=== PATIENT | male | born 1990 | race Asian ===

== ENCOUNTER 2020-07-29 11:52 | Outpatient (REF) | payer SELFPAY ==
[2020-07-29 12:26] LABS: COVID-19 Test Negative (Negative)
== END 2020-07-29 11:53 | disposition home or self-care (01) ==
LOC: HO.LAB 11:52
PROVIDERS: PCP Emergency Medicine Emergency Medical Services; Visit Provider Internal Medicine
DX: Z20.828 Contact with and (suspected) exposure to other viral communicable diseases (principal)
CPT/HCPCS: 87635

== ENCOUNTER 2020-08-04 15:40 | Outpatient (REF) | payer SELFPAY ==
[2020-08-04 16:55] LABS: SARS COV2 PCR INHOUSE NEGATIVE (Negative)
== END 2020-08-04 15:41 | disposition home or self-care (01) ==
LOC: HO.LAB 15:40
PROVIDERS: Visit Provider Internal Medicine
DX: Z20.828 Contact with and (suspected) exposure to other viral communicable diseases (principal)
CPT/HCPCS: 87635

== ENCOUNTER 2020-08-07 11:28 | Outpatient (REF) | payer SELFPAY ==
[2020-08-07 11:50] LABS: COVID-19 Test Negative (Negative)
== END 2020-08-07 11:29 | disposition home or self-care (01) ==
LOC: HO.LAB 11:28
PROVIDERS: Visit Provider Internal Medicine
DX: Z20.828 Contact with and (suspected) exposure to other viral communicable diseases (principal)
CPT/HCPCS: 87635

== ENCOUNTER 2024-06-25 04:31 | Emergency (ER) | payer BC, SELFPAY ==
[2024-06-25 04:35] VITALS: BP 137/90; PULSE 77; RESP 18; TEMP 36.6; O2SAT 99; BMI 26.3
[2024-06-25] MEDS: Magnesium Hydrox/Alum Hydrox 30 ML ORAL.SUSP PO (04:57)
[2024-06-25] MEDS: ondansetron HCL 4 MG/2 ML VIAL IVPUSH (04:57)
[2024-06-25] MEDS: Famotidine/PF 20 MG/2 ML VIAL IVPUSH (04:57)
[2024-06-25] MEDS: 0.9 % Sodium Chloride 1,000 ML 999 ML IV ×2 (04:58→05:57)
[2024-06-25 04:59] LABS: Basophils Absolute Auto 0.1 X10*3/uL (0.0-0.2); Basophils Percent Auto 0.6 % (0-2); Eosinophils Absolute Auto 0.1 X10*3/uL (0.0-0.4); Eosinophils Percent Auto 0.7 % (0-4); Hemoglobin 15.9 g/dl (14.0-18.0); Imm Gran Abs Auto 0.02 X10*3/uL (0.00-0.03); Imm Gran Pct Auto 0.2 % (0.0-0.4); Lymphocytes Absolute Auto 2.1 X10*3/uL (1.2-4.9); Lymphocytes Percent Auto 25.1 % (20-40); MANUAL DIFF FLAG NO; Mean Corpuscular HGB Conc 34.6 g/dl (31.0-36.0); Mean Corpuscular Hemoglobin 27.6 pg (27.0-33.0); Mean Corpuscular Volume 79.9 fL (80.0-98.0); Mean Platelet Volume 10.7 fL (9.4-12.4); Monocytes Absolute Auto 0.4 X10*3/uL (0.1-1.2); Monocytes Percent Auto 4.1 % (2-11); Neutrophils Absolute Auto 5.9 x10*3/uL (2.0-8.3); Neutrophils Percent Auto 69.3 % (45-73); Platelet Count 235 X10*3/uL (160-400); Red Blood Count 5.76 X10*6/uL (4.60-5.80); Red Cell Distribution Width 13.6 % (11.0-16.0); White Blood Count 8.5 X10*3/uL (4.8-10.8)
[2024-06-25 05:13] LABS: Alanine Aminotransferase 59 U/L (0-40); Albumin Level 4.9 g/dL (3.5-5.0); Alkaline Phosphatase 93 U/L (39-117); Anion Gap 16 (12-20); Aspartate Amino Transferase 27 U/L (5-37); Bilirubin Direct 0.1 mg/dL (0.0-0.5); Bilirubin Total 0.5 mg/dL (0.0-1.0); Blood Urea Nitrogen 17 mg/dL (9-16); Calcium 10.2 mg/dL (8.4-10.2); Carbon Dioxide 24 mmol/L (22-29); Chloride 105 mmol/L (96-108); Creatinine Clr Calc Pharmacy 128.8; Estimated Glomerular Filt Rate > 60; Glucose Random 118 mg/dL (60-115); Lipase 31 U/L (8-78); Sodium 141 mmol/L (135-145); Total Protein 8.2 g/dL (6.5-8.0)
[2024-06-25 05:19] LABS: Troponin-I High Sensitivity < 2.7 ng/L (<3.5-35.0)
[2024-06-25] MEDS: Metoclopramide HCl 10 MG/2 ML VIAL IVPUSH (05:21)
--- NOTE | 2024-06-25 05:49 | ED.ABDPAIN ---
HPI - Abdominal Pain General Chief Complaint: Abdominal Pain Stated Complaint: nauseous/vomiting Time Seen by Provider: 06/25/24 04:48 Source: patient Mode of arrival: ambulatory Limitations: no limitations History of Present Illness ED Provider: DR. Mai HPI narrative: a 34-year-old male walk into the emergency department for evaluation of persistent vomiting since last night started at 20:00. Patient is been having frequent vomiting, tried several doses of Zofran with no relief of his symptoms, patient gets epigastric cramps every 5-10 minute followed by vomiting and burping with a smell of rotten egg, no vomiting otherwise, no abdominal pain in between the episodes, no sick contacts, no bad food, no recent use of antibiotic, no recent travel, never had intra-abdominal surgery in past, no alcohol use or drug use. 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 Related Data Previous Rx's ?Medication ?Instructions ?Recorded omeprazole 40 mg capsule,delayed 40 mg PO DAILY #30 caps 06/25/24 release Allergies Allergy/AdvReac Type Severity Reaction Status Date / Time No Known Allergies Allergy Verified 06/25/24 04:38 Review of Systems Review of Systems all other systems are reviewed and are negative Constitutional: Reports as per HPI and Reports no additional constitutional complaints Eyes: Reports as per HPI and Reports no additional eye complaints Reports system reviewed and no additional complaints, except as documented Cardiovascular: Reports as per HPI and Reports no additional cardiovascular complaints Respiratory: Reports as per HPI and Reports no additional respiratory complaints Gastrointestinal: Reports as per HPI and Reports no additional gastrointestinal complaints Genitourinary: Reports no additional female genitourinary complaints Musculoskeletal: Reports no additional musculoskeletal complaints Skin/Breast: Reports system reviewed and no additional complaints, except as docu Psychiatric: Reports no additional psychiatric complaints Endocrine: Reports no additional endocrine complaints Hematologic/Lymphatic: Reports no additional hematologic/lymphatic complaints Allergic/Immunologic: Reports no additional allergic/immunologic complaints Reports system reviewed and no additional complaints, except as documented and Reports Abnormal speech present [facility] Social History Social History Smoked in Last 30 Days: No Use of substances other than those prescribed or required for medical reasons: No Advance Directives: No Advance Directives Information Provided: No Do you have a plan to hurt others: No Plan Physical Exam ED Vital Signs: Vital Signs - 24 hr 06/25/24 04:35 Temperature 97.9 F Pulse Rate 77 Respiratory Rate 18 Blood Pressure 137/90 H Pulse Oximetry 99 Oxygen Delivery Method Room Air BMI result Body Mass Index 26.3 Vital signs have been reviewed and appear to be correct. Blood pressure elevated. Heart rate normal. Respiratory rate normal. Temperature normal. Oxygen saturation normal. Appearance: Alert. Oriented X3. No acute distress. Head: Normal external exam. Normocephalic. Atraumatic. No Sam signs noted. No raccoon eyes noted Eyes: PERRLA. EOMI. Conjunctiva and sclera normal. Eyelids normal. ENT: TM's Normal. Pharynx normal. Uvula midline. Moist mucous membranes. No trismus noted. No drooling noted. No muffled voice noted. Neck: Normal inspection. Neck supple. FROM. No adenopathy. Thyroid Normal. No meningeal signs. No neck mass noted. CVS: Normal heart rate and rhythm. Heart sound normal. No murmurs noted. Pulses normal throughout. Respiratory: No respiratory distress. Painless inspiration. Breath sounds normal. No wheezes/rales/rhonchi noted. Chest nontender. No accessory muscle usage noted or decreased air movement noted. Abdomen: Soft and nontender. Bowel sounds normal in all 4 quadrants. No distention noted. No organomegaly noted. No visible injury noted. Back: No CVA tenderness. Full range of motion noted. Skin: Skin warm and dry. Normal skin color. Normal skin turgor. No rashes/lesions/lacerations noted. Extremities: No lower extremity edema. Extremities exhibit normal range of motion. Extremities nontender. Neuro: Oriented X 3. Cranial nerve exam: II-XII are grossly intact No motor deficit. No sensory deficit. Reflexes normal. Course Reevaluation(s) Reevaluation #1: feels much better, able to tolerate p.o. intake without nausea or vomiting. Labs are unremarkable for acute pathology. Patient's symptoms is likely acute gastritis will start on Prilosec. Time: 07:00 Medical Decision Making Differential Diagnosis Differential Diagnoses: The differential diagnosis associated with the presentation includes ( Food poisoning, gastroenteritis, gastritis, electrolyte derangement, dehydration, EM, severe anemia, acute appendicitis, acute colitis.) Admission/Observation Consideration of admission/observation: Escalation of care including admission/observation considered Lab Data MDM Lab Attestation statement: I reviewed the patient's lab results. 06/25/24 04:54 06/25/24 04:54 Labs: Lab Results 06/25/24 Range/Units 04:54 WBC 8.5 (4.8-10.8) X10*3/uL RBC 5.76 (4.60-5.80) X10*6/uL Hgb 15.9 (14.0-18.0) g/dl Hct 46.0 (42.0-52.0) % MCV 79.9 L (80.0-98.0) fL MCH 27.6 (27.0-33.0) pg MCHC 34.6 (31.0-36.0) g/dl RDW 13.6 (11.0-16.0) % Plt Count 235 (160-400) X10*3/uL MPV 10.7 (9.4-12.4) fL Immature Gran % (Auto) 0.2 (0.0-0.4) % Neut % (Auto) 69.3 (45-73) % Lymph % (Auto) 25.1 (20-40) % Ashley % (Auto) 4.1 (2-11) % Eos % (Auto) 0.7 (0-4) % Baso % (Auto) 0.6 (0-2) % Lymph # (Auto) 2.1 (1.2-4.9) X10*3/uL Ashley # (Auto) 0.4 (0.1-1.2) X10*3/uL Eos # (Auto) 0.1 (0.0-0.4) X10*3/uL Baso # (Auto) 0.1 (0.0-0.2) X10*3/uL Abs Immat Gran (auto) 0.02 (0.00-0.03) X10*3/uL Absolute Neuts (auto) 5.9 (2.0-8.3) x10*3/uL Absolute Nucleated RBC 0.000 (0.0-0.012) X10*3/uL Nucleated RBC % (auto) 0.0 (0.0-0.2) /100WBC Sodium 141 (135-145) mmol/L Potassium 4.0 (3.3-5.1) mmol/L Chloride 105 (96-108) mmol/L Carbon Dioxide 24 (22-29) mmol/L Anion Gap 16 (12-20) BUN 17 H (9-16) mg/dL Creatinine 0.93 (0.5-1.4) mg/dL Estim Creat Clear Calc 128.8 Estimated GFR > 60 Random Glucose 118 H (60-115) mg/dL Calcium 10.2 (8.4-10.2) mg/dL Total Bilirubin 0.5 (0.0-1.0) mg/dL Direct Bilirubin 0.1 (0.0-0.5) mg/dL AST 27 (5-37) U/L ALT 59 H (0-40) U/L Alkaline Phosphatase 93 (39-117) U/L Troponin I High Sens < 2.7 (<3.5-35.0) ng/L Total Protein 8.2 H (6.5-8.0) g/dL Albumin 4.9 (3.5-5.0) g/dL Lipase 31 (8-78) U/L Medications Administered Discontinued Medications Generic Name Dose Route Start Last Admin Trade Name Freq PRN Reason Stop Dose Admin Al Hydroxide/Mg Hydroxide 30 ml 06/25/24 04:50 06/25/24 04:57 Magnesium Hydrox/Alum Hydrox 30 Ml Oral.Susp PO 06/25/24 04:51 30 ml ONCE ONE Administration Famotidine 20 mg 06/25/24 04:49 06/25/24 04:57 Famotidine/Pf 20 Mg/2 Ml Vial IVPUSH 06/25/24 04:50 20 mg ONCE ONE Administration Sodium Chloride 1,000 mls @ 999 mls/hr 06/25/24 04:49 06/25/24 04:58 Ns IV 06/25/24 05:49 999 mls/hr .Q1H1M ONE Administration Metoclopramide HCl 10 mg 06/25/24 05:14 06/25/24 05:21 Metoclopramide Hcl 10 Mg/2 Ml Vial IVPUSH 06/25/24 05:15 10 mg ONCE ONE Administration Ondansetron HCl 4 mg 06/25/24 04:49 06/25/24 04:57 Ondansetron Hcl 4 Mg/2 Ml Vial IVPUSH 09/11/24 04:50 4 mg ONCE ONE Administration Discharge Plan Discharge Clinical Impression: Gastritis, Vomiting Patient Disposition: Home, Self-Care Instructions: Gastritis (ED) Prescriptions: New omeprazole 40 mg capsule,delayed release(DR/EC) 40 mg PO DAILY Qty: 30 0RF Referrals: Camryn Lovett MD [Physician] - Viral Kapadia MD [Primary Care Provider] - Print Language: French
[2024-06-25 06:45] VITALS: BP 137/90; PULSE 77; RESP 18; TEMP 36.6; O2SAT 99
== END 2024-06-25 06:46 | disposition home or self-care (01) ==
PROVIDERS: Emergency Provider Emergency Medicine; PCP Internal Medicine
DX: K29.70 Gastritis, unspecified, without bleeding (principal); R11.10 Vomiting, unspecified; R10.9 Unspecified abdominal pain
CPT/HCPCS: 36415; 80048; 80076; 83690; 84484; 85025; 96361; 96374; 96375; 99284; J2405; J2765

== ENCOUNTER 2024-06-25 20:08 | Emergency (ER) | payer BC, SELFPAY ==
--- NOTE | ~2024-06-25 | CT_ITS ---
EXAMINATION: CT ABDOMEN AND PELVIS WITH CONTRAST CLINICAL INFORMATION: Abdominal pain COMPARISON: None available. TECHNIQUE: Multidetector volumetric images were obtained from the superior aspect of the liver through the pubic symphysis following administration 85 mL of Omnipaque 350 intravenous contrast. Sagittal and coronal reformatted images were obtained on the technologist's workstation. Oral contrast: No This CT examination was performed using dose optimization techniques as appropriate, variously including the following: *Automated exposure control *Adjustment of mA and/or kV according to patient size (this includes techniques or standardized protocols for targeted exams where dose is matched to indication/reason for exam; i.e. extremities or head) *Use of iterative reconstruction technique DLP: 528 mGy-cm FINDINGS: LUNG BASES: The visualized lung bases are unremarkable. LIVER, GALLBLADDER, AND BILIARY TREE: The liver is normal in size, shape, and attenuation. No focal hepatic lesion or biliary ductal dilatation is present. The gallbladder is unremarkable with no evidence of radiopaque gallstones, gallbladder wall thickening, or obvious pericholecystic inflammatory changes. PANCREAS: Unremarkable. SPLEEN: Unremarkable. ADRENAL GLANDS: Unremarkable. KIDNEYS AND URETERS: The kidneys are normal in size, shape, and attenuation. No hydronephrosis, hydroureter, or calculi seen. No perinephric stranding. BLADDER: Unremarkable. GASTROINTESTINAL TRACT: The small and large bowel are unremarkable. The appendix is unremarkable. ABDOMINAL WALL: No significant hernia is appreciated. LYMPH NODES: Normal. VASCULAR: Unremarkable. PELVIC VISCERA: Unremarkable. OSSEOUS STRUCTURES: Unremarkable. CT/CT abdomen pelvis w IV con IMPRESSION: Normal CT of abdomen and pelvis. Fleischner guidelines were followed. Electronically signed by: Den Ortega MD 06/25/2024 10:15 PM EDT
[2024-06-25 20:10] VITALS: BP 145/80; PULSE 94; RESP 18; TEMP 36.8; O2SAT 99; BMI 26.3
--- NOTE | 2024-06-25 20:10 | ED_ITS ---
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 was seen here lastnight lab workup showed normal WBC count was discharged after IV fluid does have slight upper abdominal and mid abdomen discomfort no fever no chills no fever patient went home continued to vomit took Zofran and Reglan without much relief does not remember any bad food or recent travel Related Data Previous Rx's ?Medication ?Instructions ?Recorded omeprazole 40 mg capsule,delayed 40 mg PO DAILY #30 caps 06/25/24 release ondansetron 4 mg disintegrating 4 mg PO Q6-8H PRN nausea and 06/25/24 tablet vomiting #20 tabs Allergies Allergy/AdvReac Type Severity Reaction Status Date / Time No Known Allergies Allergy Verified 06/25/24 20:15 Review of Systems Review of Systems Yes all other systems are reviewed and are negative [facility] Social History Social History Advance Directives: No Advance Directives Information Provided: No Physical Exam ED Vital Signs: Vital Signs - 24 hr 06/25/24 20:10 06/25/24 20:39 06/25/24 23:15 Temperature 98.2 F 98.4 F 97.4 F Pulse Rate 94 97 91 Respiratory Rate 18 16 16 Blood Pressure 145/80 H 131/83 134/90 H Pulse Oximetry 99 97 98 Oxygen Delivery Method Room Air Room Air Room Air 06/25/24 23:17 Temperature 97.4 F Pulse Rate 91 Respiratory Rate 16 Blood Pressure 134/90 H Pulse Oximetry 98 Oxygen Delivery Method Room Air BMI result Body Mass Index 26.3 Appearance: Alert. Oriented X3. No acute distress. Eyes: PERRLA, No Nystagmus ENT: Pharynx normal. Oral Mucosa moist Neck: Normal inspection. Neck supple. CVS: Normal heart rate and rhythm. Pulses normal. Respiratory: No respiratory distress. Equal air entry bilateral, Abdomen: Soft and mild tenderness in epigastric area deep tenderness right lower quadrant no guarding or rebound tenderness, Bowel sounds are present, no mass palpable, no CVA tenderness Skin: Skin warm and dry. Normal skin color. Normal skin turgor. Extremities: No lower extremity edema. No calf tenderness Neuro: Oriented X 3. No motor deficit. Course Course Course Narrative: This is an RME done by [facility]: Additional HPI, ROS, PE not included below will be deferred to primary provider. 34-year-old male presenting with a 2 day history of nausea vomiting epigastric abdominal pain. Patient was seen yesterday for the same complaints was given Zofran Reglan with minimal effect. Denies fevers, chills, sick contacts Appearance: Alert.? Oriented X3.? No acute cardiopulmonary distress distress.? Head: Normocephalic, atraumatic Neck: Normal inspection.? Neck supple.? CVS: Pulses normal.? Respiratory: No respiratory distress.? Abdomen: Soft and mildly tender to palpation in the epigastrium Skin: ? Normal skin color. Neuro: Oriented X 3.? No motor deficit.? No sensory deficit. Medical Decision Making Medical Decision Making [facility] Narrative: Patient has acute gastritis with vomiting multiple times light deep tenderness right lower quadrant will do CT scan to rule out appendicitis Patient's workup is negative CT scan negative for acute pathology patient feeling much better taking p.o. fluids Differential Diagnosis Differential Diagnoses: The differential diagnosis associated with the presentation includes Gastritis/appendicitis/cholecystitis/esophagitis food poisoning/viral Admission/Observation Consideration of admission/observation: Escalation of care including admission/observation considered Lab Data [facility] Lab Attestation statement: I reviewed the patient's lab results. 06/25/24 20:38 06/25/24 20:38 Labs: Lab Results 06/25/24 Range/Units 20:38 WBC 11.5 H (4.8-10.8) X10*3/uL RBC 5.46 (4.60-5.80) X10*6/uL Hgb 15.2 (14.0-18.0) g/dl Hct 42.8 (42.0-52.0) % MCV 78.4 L (80.0-98.0) fL MCH 27.8 (27.0-33.0) pg MCHC 35.5 (31.0-36.0) g/dl RDW 13.6 (11.0-16.0) % Plt Count 215 (160-400) X10*3/uL MPV 10.6 (9.4-12.4) fL Immature Gran % (Auto) 0.2 (0.0-0.4) % Neut % (Auto) 77.0 H (45-73) % Lymph % (Auto) 15.8 L (20-40) % Green % (Auto) 6.3 (2-11) % Eos % (Auto) 0.4 (0-4) % Baso % (Auto) 0.3 (0-2) % Lymph # (Auto) 1.8 (1.2-4.9) X10*3/uL Green # (Auto) 0.7 (0.1-1.2) X10*3/uL Eos # (Auto) 0.1 (0.0-0.4) X10*3/uL Baso # (Auto) 0.0 (0.0-0.2) X10*3/uL Abs Immat Gran (auto) 0.02 (0.00-0.03) X10*3/uL Absolute Neuts (auto) 8.8 H (2.0-8.3) x10*3/uL Absolute Nucleated RBC 0.000 (0.0-0.012) X10*3/uL Nucleated RBC % (auto) 0.0 (0.0-0.2) /100WBC Sodium 139 (135-145) mmol/L Potassium 3.4 (3.3-5.1) mmol/L Chloride 105 (96-108) mmol/L Carbon Dioxide 26 (22-29) mmol/L Anion Gap 11 L (12-20) BUN 14 (9-16) mg/dL Creatinine 0.86 (0.5-1.4) mg/dL Estim Creat Clear Calc 139.3 Estimated GFR > 60 Random Glucose 106 (60-115) mg/dL Calcium 9.7 (8.4-10.2) mg/dL Magnesium 2.0 (1.6-2.6) mg/dL Total Bilirubin 0.7 (0.0-1.0) mg/dL AST 24 (5-37) U/L ALT 49 H (0-40) U/L Alkaline Phosphatase 92 (39-117) U/L Total Protein 7.5 (6.5-8.0) g/dL Albumin 4.5 (3.5-5.0) g/dL Lipase 82 H (8-78) U/L Independent Interpretation I performed an independent interpretation of an: CT Scan Radiology Impression Discussion of test interpretation with radiology: I have reviewed the radiologist's reading. Radiologist Impression: Negative for appendicitis Medications Administered Discontinued Medications Generic Name Dose Route Start Last Admin Trade Name Freq PRN Reason Stop Dose Admin Sodium Chloride 1,000 mls @ 999 mls/hr 06/25/24 20:20 06/25/24 21:52 Ns IV 06/25/24 21:20 Infused .Q1H1M ONE Infusion Sodium Chloride 1,000 mls @ 999 mls/hr 06/25/24 21:59 06/25/24 23:17 Ns IV 06/25/24 22:59 Infused .Q1H1M ONE Infusion Iohexol 100 ml 06/25/24 20:53 06/25/24 20:54 Iohexol 350 Mg/Ml 100 Ml Infus..Btl IV 06/25/24 20:54 85 ml ONCE ONE Administration Pantoprazole Sodium 40 mg 06/25/24 20:13 06/25/24 20:46 Pantoprazole Sodium 40 Mg/10 Ml Vial IVPUSH 06/25/24 20:14 40 mg ONCE ONE Administration Prochlorperazine Edisylate 10 mg 06/25/24 21:37 06/25/24 21:52 Prochlorperazine Edisylate 10 Mg/2 Ml Vial IVPUSH 06/25/24 21:38 10 mg ONCE ONE Administration Discharge Plan Discharge Clinical Impression: Gastritis Patient Disposition: Home, Self-Care Instructions: Gastritis (ED) Additional Instructions: Drink plenty of fluid Take Zofran for nausea and vomiting Your CT scan is negative for acute Prescriptions: New ondansetron 4 mg tablet,disintegrating 4 mg PO Q6-8H PRN (Reason: nausea and vomiting) Qty: 20 0RF No Action omeprazole 40 mg capsule,delayed release(DR/EC) 40 mg PO DAILY Qty: 30 0RF Interventions: ED Discharge Assessment Last Done: 06/25/24 23:17 Discharge Date/Time: 06/25/24 23:18 Print Language: Com[place]an
[2024-06-25 20:39] VITALS: BP 131/83; PULSE 97; RESP 16; TEMP 36.9; O2SAT 97
[2024-06-25 20:45] LABS: MANUAL DIFF FLAG NO
[2024-06-25] MEDS: Pantoprazole Sodium 40 MG/10 ML VIAL IVPUSH (20:46)
[2024-06-25] MEDS: 0.9 % Sodium Chloride 1,000 ML 999 ML IV ×2 (20:46→22:15)
[2024-06-25 20:48] LABS: Basophils Percent Auto 0.3 % (0-2); Eosinophils Absolute Auto 0.1 X10*3/uL (0.0-0.4); Eosinophils Percent Auto 0.4 % (0-4); Hematocrit 42.8 % (42.0-52.0); Hemoglobin 15.2 g/dl (14.0-18.0); Imm Gran Abs Auto 0.02 X10*3/uL (0.00-0.03); Imm Gran Pct Auto 0.2 % (0.0-0.4); Lymphocytes Absolute Auto 1.8 X10*3/uL (1.2-4.9); Lymphocytes Percent Auto 15.8 % (20-40); Mean Corpuscular HGB Conc 35.5 g/dl (31.0-36.0); Mean Corpuscular Hemoglobin 27.8 pg (27.0-33.0); Mean Corpuscular Volume 78.4 fL (80.0-98.0); Mean Platelet Volume 10.6 fL (9.4-12.4); Monocytes Absolute Auto 0.7 X10*3/uL (0.1-1.2); Monocytes Percent Auto 6.3 % (2-11); Neutrophils Absolute Auto 8.8 x10*3/uL (2.0-8.3); Platelet Count 215 X10*3/uL (160-400); Red Blood Count 5.46 X10*6/uL (4.60-5.80); Red Cell Distribution Width 13.6 % (11.0-16.0); White Blood Count 11.5 X10*3/uL (4.8-10.8)
[2024-06-25] MEDS: iohexoL 350 MG/ML 100 ML INFUS..BTL IV (20:54)
[2024-06-25 21:04] LABS: Alanine Aminotransferase 49 U/L (0-40); Albumin Level 4.5 g/dL (3.5-5.0); Alkaline Phosphatase 92 U/L (39-117); Anion Gap 11 (12-20); Aspartate Amino Transferase 24 U/L (5-37); Bilirubin Total 0.7 mg/dL (0.0-1.0); Blood Urea Nitrogen 14 mg/dL (9-16); Calcium 9.7 mg/dL (8.4-10.2); Carbon Dioxide 26 mmol/L (22-29); Chloride 105 mmol/L (96-108); Creatinine Clr Calc Pharmacy 139.3; Estimated Glomerular Filt Rate > 60; Glucose Random 106 mg/dL (60-115); Lipase 82 U/L (8-78); Potassium 3.4 mmol/L (3.3-5.1); Sodium 139 mmol/L (135-145); Total Protein 7.5 g/dL (6.5-8.0)
[2024-06-25] MEDS: Prochlorperazine Edisylate 10 MG/2 ML VIAL IVPUSH (21:52)
[2024-06-25 23:15] VITALS: BP 134/90; PULSE 91; RESP 16; TEMP 36.3; O2SAT 98
[2024-06-25 23:17] VITALS: BP 134/90; PULSE 91; RESP 16; TEMP 36.3; O2SAT 98
== END 2024-06-25 23:18 | disposition home or self-care (01) ==
PROVIDERS: Physician Assistant; Emergency Provider Internal Medicine; PCP Internal Medicine
DX: K29.70 Gastritis, unspecified, without bleeding (principal); R11.10 Vomiting, unspecified; R10.10 Upper abdominal pain, unspecified; Z79.899 Other long term (current) drug therapy
CPT/HCPCS: 36415; 74177; 80053; 83690; 83735; 85025; 96361; 96374; 96375; 99284; J0737; J2470; Q9967